=== PATIENT | male | born 1950 | race Caucasian/White ===

== ENCOUNTER 2021-02-18 11:34 | Emergency (ER) | payer MEDICARE, SELFPAY ==
[2021-02-18 12:40] VITALS: BP 122/76; PULSE 81; RESP 16; TEMP 38.3; O2SAT 94
--- NOTE | 2021-02-18 12:54 | XRR_ITS ---
PROCEDURE INFORMATION: Exam: XR Chest Exam date and time: 02/18/2021 12:54 PM Age: 70 years old Clinical indication: Cough and dyspnea TECHNIQUE: Imaging protocol: XR of the chest. Views: 1 view. COMPARISON: No relevant prior studies available. FINDINGS: Lungs: There is streaky opacity at the left lung base. Pleural spaces: Unremarkable. No pleural effusion. No pneumothorax. Heart/Mediastinum: Unremarkable. No cardiomegaly. Diaphragm: Minimal elevation of the left hemidiaphragm. Bones/joints: Unremarkable. XR/XR chest 1V portable [id number] IMPRESSION: Streaky opacity at the left lung base may represent atelectasis, scar tissue, and or pneumonia.
--- NOTE | 2021-02-18 12:54 | W.ED.COVID ---
HPI - COVID General: Chief Complaint: COVID symptoms Stated Complaint: Covid + Time Seen by Provider: 02/18/21 12:48 Triage information: Has fever, cough or shortness of breath. No known COVID + exposure last 14 days History of Present Illness: HPI Narrative: This patient is a 70-year-old male who presents to the emergency department with a diagnosis of Covid. Patient states still presents with a cough states is very difficult to sleep due to the cough and want requesting a chest x-ray. Patient denies fever blood pressure 121/76 pulse 80 respirations 16 temperature 100 O2 sat 97% on room air. Patient states he just does not feel like she is getting any better. And request a chest x-ray. MD complaint: known COVID positive and has COVID symptoms COVID 19 common symptoms: positive non-productive cough; negative fever(s), chills, fatigue, body aches, headache(s), throat pain, nausea or vomiting COVID 19 other sytmptoms: negative chest pain COVID Results: No Data to Display Review of Systems General: Reports: 10 or more systems reviewed and unremarkable except in HPI and below Const: Denies: fever(s), chills, body aches or fatigue Eyes: Denies: change in vision or blurry vision ENMT: Denies: throat pain, hoarseness or mouth pain Card: Denies: chest pain, palpitations, irregular heart rhythm, edema, swelling of feet/ankles or lightheadedness Resp: Reports: non-productive cough GI: Denies: abdominal pain, nausea or vomiting : Denies: flank pain, dysuria, urinary frequency, urinary urgency or urinary hesitancy Musc: Denies: neck pain, back pain, extremity pain, extremity swelling, joint pain, joint swelling, joint redness, joint warmth or limited range of motion Skin/Breast: Denies: rash, pruritus, erythema or skin tenderness Neuro: Denies: headache(s), numbness in extremities or weakness in extremities Psych: Denies: anxiety or depression Physical Exam Const: COMMON NORMALS: no acute distress, average body habitus, patient oriented x3, no limitations, healthy appearing, alert and well nourished HENMT: COMMON NORMALS: normocephalic, atraumatic, hearing grossly normal bilaterally, external ears normal, EAC's normal, TM's normal bilaterally, Normal external nose present, Normal nasal mucous membranes and turbinates present, moist oral mucous membranes, oropharynx normal, dentition normal and gingiva normal HEAD & SCALP: normocephalic and atraumatic NOSE: Normal external nose present and Normal nasal mucous membranes and turbinates present EXTERNAL EAR: Yes external ears normal EXTERNAL AUDITORY CANAL: EAC's normal TYMPANIC MEMBRANE: TM's normal bilaterally Neck/C-Spine: COMMON NORMALS: full ROM, no lymphadenopathy, supple, no meningeal signs, no JVD, Thyroid normal and No carotid bruits THYROID: Thyroid normal Chest: COMMONS NORMALS: normal inspection of the chest, normal palpation of entire chest wall, normal inspection of the breasts and normal palpation of the breasts Breast/axilla inspection: Yes normal inspection of the breasts BREAST/AXILLA PALPATION: Yes normal palpation of the breasts Resp: COMMON NORMALS: normal respiratory effort, No retractions, No use of accessory muscles, clear to auscultation bilaterally and percussion normal AUSCULTATION: clear to auscultation bilaterally PERCUSSION: percussion normal Cardio: COMMON NORMALS: no JVD, regular rate, regular rhythm, S1 normal heart sound present, S2 normal heart sound present, No gallops present (Cardio), No clicks present (Cardio), No murmurs present (Cardio), No rub (Cardio) and Peripheral pulses 2+ throughout RATE: regular rate RHYTHM: regular rhythm HEART SOUNDS: S1 normal heart sound present and S2 normal heart sound present PERIPHERAL PULSES: Peripheral pulses 2+ throughout GI: COMMON NORMALS: Normal to inspection, nondistended, normoactive bowel sounds present, Soft to palpation, non-tender, No hepatosplenomegaly present, no masses and no bruits PALPATION: Yes Soft to palpation and Yes No hepatosplenomegaly present : COMMON NORMALS: Yes no CVA tenderness BLADDER/KIDNEY EXAM: Yes no CVA tenderness Back/Pelvis: COMMON NORMALS: no CVA tenderness, thoracic and lumbar spine normal to inspection, no thoracic nor lumbar tenderness, thoraco-lumbar ROM normal and straight leg raise negative bilaterally Extremity: COMMON NORMALS: normal to inspection, full ROM, capillary refill normal, no joint enlargement, no clubbing, cyanosis or edema, no calf tenderness and no pedal edema Neuro: COMMON NORMALS: patient oriented x3 SENSORIUM/ORIENTATION: Yes alert MENINGEAL SIGNS: Yes no meningeal signs Course Reevaluation(s): Reevaluation #1: No specific complaints other than a known Covid positive. Patient will be discharged home. Chest x-ray unremarkable. Patient is to follow-up with primary care physician in 2 to 3 days. If no improvement. Take medications as prescribed. And continue self quarantine. Time: 13:42 Vital Signs: Vital signs: Vital Signs Temperature 100.9 F H 02/18/21 12:40 Pulse Rate 81 02/18/21 12:40 Respiratory Rate 16 02/18/21 12:40 Blood Pressure 122/76 02/18/21 12:40 Pulse Oximetry 95 02/18/21 13:00 MDM - COVID MDM Narrative: Medical decision making narrative: No specific complaints other than a known Covid positive. Patient will be discharged home. Chest x-ray unremarkable. Patient is to follow-up with primary care physician in 2 to 3 days. If no improvement. Take medications as prescribed. And continue self quarantine. Differential Diagnosis: Differential diagnosis: Likely COVID 19 Medical Records: Attestation: I reviewed the patient's medical records. Lab Data: Attestation: I reviewed the patient's lab results. COVID Results: No Data to Display Discharge Plan Discharge Patient Disposition: Home Clinical Impression: COVID-19, Upper respiratory infection Condition: Stable Discharge Orders: Discharge ED (Routine); Ordered 02/18/21 Ordered By: Jah Biggs Referrals: Bebo Koehler FNP [Primary Care Provider] - Discharge Diet: Advance as tolerated Discharge Activity: Resume usual activity Patient Instructions: Opioid Safety Activity Restrictions/Additional Instructions: Continue all home medications. Coolmist humidifier as needed. Continue self quarantine. Follow-up with primary care physician in 3 to 5 days as needed. Coding Level of Care Code ED [employer] Exam Comprehensive
[2021-02-18 13:00] VITALS: O2SAT 95
[2021-02-18] MEDS: acetaminophen 325 mg Tablet 650 MG PO (13:13)
[2021-02-18 14:00] VITALS: BP 122/77; PULSE 76; RESP 16; TEMP 38; O2SAT 94
== END 2021-02-18 14:00 | disposition home or self-care (01) ==
PROVIDERS: Emergency Provider Emergency Medicine; PCP Nurse Practitioner Family
DX: U07.1 COVID-19 (principal)
CPT/HCPCS: 71045; 99283